=== PATIENT | female | born 1945 | race Two or more races ===

== ENCOUNTER 2022-11-18 09:00 | Inpatient (IN) | payer OTHER ==
[~2022-11-18] VITALS: Ht 165.1 cm; Wt 45.4 kg
[2022-11-18] MEDS ORDERED: PRAVASTATIN SOD40 MG PO (13:16)
[2022-11-18] MEDS ORDERED: NORVASC10 MG PO (13:17)
[2022-11-18] MEDS ORDERED: COZAAR25 MG PO (13:17)
[2022-11-18] MEDS ORDERED: OMEGA-31000 MG PO (13:17)
[2022-11-18] MEDS ORDERED: HYFIBER WI12 GM/302 PO (13:18)
[2022-11-18] MEDS ORDERED: BONIVA150 MG PO (13:18)
[2022-11-22] MEDS ORDERED: ATORVASTATIN CA40 MG (07:55)
[2022-11-22] MEDS ORDERED: OMEGA-3 ACID ETH1 GM (07:55)
[2022-11-22] MEDS ORDERED: GABAPENTIN100 M2 (07:55)
[2022-11-23] MEDS ORDERED: LEVOFLOXACIN500 MG PO (12:50)
[2022-11-23] MEDS ORDERED: INTESTINEX680 M1 PO (12:50)
[2022-11-23] MEDS ORDERED: TRAM1TAB98 PO (12:50)
== END 2022-11-23 14:04 | disposition home or self-care (01) | DRG 331 ==
LOC: EDSTATUS 09:00 → ADM 09:00 → O/R 11-22 05:51 → SURH 11-22 05:51 → EDBD 11-22 09:00 → SURH 11-22 09:00
PROVIDERS: ADMIT Surgery; ATTEND Surgery
PROC: 0DBP0ZZ Excision of Rectum, Open Approach (ICD-10-PCS; 2022-11-22)
PROC: 0DUR0JZ Supplement Anal Sphincter with Synthetic Substitute, Open Approach (ICD-10-PCS; 2022-11-22)
PROC: 3E0T3BZ Introduction of Anesthetic Agent into Peripheral Nerves and Plexi, Percutaneous Approach (ICD-10-PCS; 2022-11-22)
PROC: 0DTNFZZ Resection of Sigmoid Colon, Via Natural or Artificial Opening With Percutaneous Endoscopic Assistance (ICD-10-PCS; principal; 2022-11-22 08:30)
DX: K62.3 Rectal prolapse (principal); R15.9 Full incontinence of feces; Z20.822 Contact with and (suspected) exposure to COVID-19